=== PATIENT | female | born 1970 | race Caucasian/White ===

== ENCOUNTER → 2017-01-01 | Outpatient (CLI) | payer OTHER | LOC: MC.RAD 09:40 | DX: Z12.31 Encounter for screening mammogram for malignant neoplasm of breast (principal); Z80.3 Family history of malignant neoplasm of breast ==

== ENCOUNTER → 2018-02-19 | Outpatient (CLI) | payer OTHER | LOC: MC.RAD 01-16 10:00 | DX: Z12.39 Encounter for other screening for malignant neoplasm of breast (principal) ==

== ENCOUNTER → 2019-03-12 | Outpatient (CLI) | payer OTHER | LOC: MC.RAD 13:00 | DX: Z12.31 Encounter for screening mammogram for malignant neoplasm of breast (principal) ==

== ENCOUNTER 2019-07-10 10:54 | Emergency (ER) | payer OTHER ==
[~2019-07-10] VITALS: Ht 170.2 cm; Wt 97.7 kg
[2019-07-10 11:02] VITALS: BP 124/65; TEMP 99
[2019-07-10] MEDS ORDERED: ZOLOFT 50MG50 MG PO (11:05)
[2019-07-10] MEDS ORDERED: FLOXIN 10 ML10 ML OT (11:28)
[2019-07-10] MEDS ORDERED: STRATTERA 25MG25 MG PO (11:29)
[2019-07-10] MEDS ORDERED: MOBIC 7.5MG7.5 MG (11:29)
[2019-07-10] MEDS ORDERED: PRIL40 PO (11:29)
[2019-07-10 11:38] VITALS: PULSE 77
== END 2019-07-10 11:40 | disposition home or self-care (01) ==
LOC: COL.ER 10:54
DX: S00.411A Abrasion of right ear, initial encounter (principal); K21.9 Gastro-esophageal reflux disease without esophagitis; Z90.710 Acquired absence of both cervix and uterus; W22.8XXA Striking against or struck by other objects, initial encounter

== ENCOUNTER → 2020-05-05 | Outpatient (CLI) | payer OTHER ==
[~2020-05-05] MED LIST: FLOXIN 10 ML10 ML OT; MOBIC 7.5MG7.5 MG; PRIL40 PO; STRATTERA 25MG25 MG PO; ZOLOFT 50MG50 MG PO
== END ==
LOC: MC.RAD 09:42
DX: Z12.31 Encounter for screening mammogram for malignant neoplasm of breast (principal)

== ENCOUNTER 2020-10-07 14:18 | Emergency (ER) | payer OTHER ==
[~2020-10-07] VITALS: Ht 170.2 cm; Wt 106.8 kg
[2020-10-07 14:24] VITALS: TEMP 98.7
[2020-10-07] MEDS ORDERED: MEDROL 4MG DOSPA4 MG PO (16:22)
[2020-10-07 16:38] VITALS: BP 120/81; PULSE 96
== END 2020-10-07 16:40 | disposition home or self-care (01) ==
LOC: COL.ER 14:18
DX: U07.1 COVID-19 (principal); S39.012A Strain of muscle, fascia and tendon of lower back, initial encounter; K21.9 Gastro-esophageal reflux disease without esophagitis; Z90.710 Acquired absence of both cervix and uterus; Z90.89 Acquired absence of other organs; Z87.891 Personal history of nicotine dependence; Z88.8 Allergy status to other drugs, medicaments and biological substances; W10.8XXA Fall (on) (from) other stairs and steps, initial encounter

== ENCOUNTER 2020-10-13 16:29 | Emergency (ER) | payer OTHER ==
[~2020-10-13] VITALS: Ht 170.2 cm; Wt 106.8 kg
[~2020-10-13 16:29] MED LIST changes: +MEDROL 4MG DOSPA4 MG PO
[2020-10-13 16:36] VITALS: TEMP 97.7
[2020-10-13 18:51] LABS: BASO % 0.3 % (0.0-2.0); EOS % 0.6 % (0-4.0); GRAN # 4.9 (1.4-6.5); GRAN % 70.4 % (42.2-75.2); HEMATOCRIT 39.4 % (37.0-47.0); HEMOGLOBIN 12.7 g/dl (12.5-16.0); LYMPH # 1.5 (1.2-3.4); LYMPH % 21.1 % (20.0-51.0); MEAN CELL VOLUME 80 fl (80.0-100.0); MEAN CORPUSCULAR HEMOGLOBIN 26 pg (27.0-31.0); MEAN CORPUSCULAR HGB CONC 32 g/dl (33.0-37.0); MEAN PLATELET VOLUME 9.5 fl (7.4-10.4); MONO # 0.5 (0.1-0.6); PLATELET COUNT 229 K/mm3 (130-400); RED BLOOD COUNT 4.91 M/mm3 (4.10-5.30); REDCELL DISTRIBUTION WIDTH-CV 13.9 % (11.5-14.5)
[2020-10-13 18:56] LABS: PROTHROMBIN TIME 10.8 SECONDS (9.7-12.8)
[2020-10-13 18:58] LABS: PARTIAL THROMBOPLASTIN TIME 23.3 SECONDS (26.0-37.0)
[2020-10-13 19:04] LABS: ALANINE AMINOTRANSFERASE 29 U/L (4-34); ALBUMIN 4.3 gm/dL (3.5-5.0); ALKALINE PHOSPHATASE 62 U/L (50-136); ANION GAP 9 mmol/L (7-16); AST,SGOT 28 U/L (15-37); BILIRUBIN,TOTAL 0.3 mg/dL (0.0-1.0); BLOOD UREA NITROGEN 24 mg/dL (7-17); C-REACTIVE PROTEIN 0.9 mg/dL (0.0-0.9); CALCIUM 8.6 mg/dL (8.4-10.2); CARBON DIOXIDE 25 mmol/L (22-30); CHLORIDE 103 mmol/L (98-107); CREATININE, serum 0.88 (0.52-1.25); GLUCOSE 110 mg/dL (74-106); LIPASE 153 U/L (23-300); POTASSIUM 4.2 mmol/L (3.4-5.0); SODIUM 138 mmol/L (137-145); TOTAL PROTEIN 7.5 gm/dL (6.4-8.2)
[2020-10-13 19:05] LABS: D-DIMER < 200.00 ng/mLDDu (200-230)
[2020-10-13 19:12] LABS: TROPONIN-I < 0.012 ng/mL (0.000-0.035)
[2020-10-13 19:20] LABS: COLLECTION METHOD CLEAN CATCH
[2020-10-13 19:42] LABS: PH 5 (5-8); SQUAMOUS EPITHELIAL 0-2 /hpf; URINE APPEARANCE Clear; URINE BACTERIA None Seen /hpf; URINE BILIRUBIN Negative (NEGATIVE); URINE BLOOD Negative (NEGATIVE); URINE COLOR Yellow; URINE GLUCOSE Negative (NEGATIVE); URINE KETONE Negative (NEGATIVE); URINE LEUKOCYTE ESTERASE Negative (NEGATIVE); URINE NITRATE Negative (NEGATIVE); URINE PROTEIN(semi-quant) Negative (NEGATIVE); URINE RBC 0-2 /hpf; URINE UROBILINOGEN Negative (NEGATIVE)
[2020-10-13 20:11] VITALS: BP 138/87; PULSE 77
[2020-10-13] MEDS ORDERED: NORCO 325 MG-51 TAB PO (20:28)
== END 2020-10-13 20:53 | disposition home or self-care (01) ==
LOC: COL.ER 16:29
PROVIDERS: Emergency Medicine
DX: U07.1 COVID-19 (principal); K21.9 Gastro-esophageal reflux disease without esophagitis; Z87.891 Personal history of nicotine dependence; Z90.710 Acquired absence of both cervix and uterus; Z90.49 Acquired absence of other specified parts of digestive tract; Z88.8 Allergy status to other drugs, medicaments and biological substances

== ENCOUNTER → 2021-05-06 | Outpatient (CLI) | payer OTHER ==
[~2021-05-06] MED LIST changes: +NORCO 325 MG-51 TAB PO
== END ==
LOC: MC.RAD 08:24
DX: Z12.31 Encounter for screening mammogram for malignant neoplasm of breast (principal); N60.11 Diffuse cystic mastopathy of right breast